=== PATIENT | male | born 1985 | race Caucasian/White ===

== ENCOUNTER 2023-03-10 20:16 | Emergency (ER) | payer OTHER | END 2023-03-10 21:44 | disposition home or self-care (01) | LOC: JP.ED 20:16 | DX: M84.375A Stress fracture, left foot, initial encounter for fracture (principal); F17.210 Nicotine dependence, cigarettes, uncomplicated; Z86.16 Personal history of COVID-19; V86.95XA Unspecified occupant of 3- or 4- wheeled all-terrain vehicle (ATV) injured in nontraffic accident, initial encounter; Y92.410 Unspecified street and highway as the place of occurrence of the external cause | CPT/HCPCS: 73610-26-LT; 73610-LT; 99282; 99283 ==